=== PATIENT | male | born 1945 | race Two or more races ===

== ENCOUNTER 2019-01-23 09:04 | Day surgery (SDC) | payer MEDICARE ==
[~2019-01-23] VITALS: Ht 185.4 cm; Wt 89.8 kg
[~2019-01-23 09:04] MED LIST: AMLO5TAB4 PO; FEBU40TA PO; HEPARIN 1,000 UNITS/ML, 10ML ONE; HYDR12.517 PO; LISI-170 PO; METO50TA4 PO
[2019-01-23] MEDS ORDERED: SODIUM CHLORIDE 0.9% 1,000 ML IV SCH (10:25)
[2019-01-23 10:28] VITALS: BP 131/80
[2019-01-23 11:27] LABS: BASOPHILS # (AUTO) 0.01 x10^3/uL (0-0.1); BASOPHILS % (AUTO) 0 % (0-1); EOSINOPHILS # (AUTO) 0.06 x10^3/uL (0-0.4); EOSINOPHILS % (AUTO) 1 % (1-7); LYMPHOCYTES # (AUTO) 1.11 x10^3/uL (1-3.4); LYMPHOCYTES % (AUTO) 27 % (22-44); MD NO; MEAN CORPUSCULAR HEMOGLOBIN 29.3 pg (27.5-34.5); MEAN CORPUSCULAR HGB CONC 32.4 g/dL (33.2-36.2); MEAN CORPUSCULAR VOLUME 90.3 fL (81-97); MEAN PLATELET VOLUME 10.2 fL (7.4-10.4); MONOCYTES # (AUTO) 0.38 x10^3/uL (0.2-0.8); MONOCYTES % (AUTO) 9 % (2-9); NEUTROPHILS # (AUTO) 2.55 x10^3/uL (1.8-6.8); NEUTROPHILS % (AUTO) 62 % (42-75); PLATELET COUNT 168 x10^3/uL (130-400); RED BLOOD COUNT 4.35 x10^6/uL (4.38-5.82); RED CELL DISTRIBUTION WIDTH 13.2 % (9.4-14.8)
[2019-01-23] MEDS ORDERED: MORPHINE SULFATE 4 MG/ML, 1ML IVPush PRN (11:30)
[2019-01-23] MEDS ORDERED: PROMETHAZINE 25 MG/ML, 1ML IV PRN (11:30)
[2019-01-23] MEDS ORDERED: ACETAMINOPHEN 325 MG TABLET PO PRN (11:30)
[2019-01-23] MEDS ORDERED: hydrALAzine 20 MG/ML, 1ML IV PRN (11:30)
[2019-01-23] MEDS ORDERED: PROMETHAZINE 12.5 MG SUPP PR PRN (11:30)
[2019-01-23] MEDS ORDERED: MIDAZOLAM 1 MG/ML, 2ML IV PRN (11:30)
[2019-01-23] MEDS ORDERED: DIPHENHYDRAMINE 50 MG/ML, 1ML IVPush PRN (11:30)
[2019-01-23] MEDS ORDERED: OXYcodone 5 MG/5 ML ORAL.SOL UDC PO PRN (11:30)
[2019-01-23] MEDS ORDERED: EPHEDRINE 50 MG/ML, 1ML IM PRN (11:30)
[2019-01-23] MEDS ORDERED: ONDANSETRON ODT 8 MG PO PRN (11:30)
[2019-01-23] MEDS ORDERED: DIAZEPAM 5 MG/ML, 2ML IVPush PRN (11:30)
[2019-01-23] MEDS ORDERED: ONDANSETRON 2MG/ML, 2ML IV PRN (11:30)
[2019-01-23] MEDS ORDERED: FENTANYL PF 100 MCG/2ML IV PRN (11:30)
[2019-01-23] MEDS ORDERED: EPHEDRINE 50 MG/ML, 1ML IVPush PRN (11:30)
[2019-01-23] MEDS ORDERED: MIDAZOLAM 1 MG/ML, 2ML ONE (12:11)
[2019-01-23] MEDS ORDERED: FENTANYL PF 250 MCG/5ML ONE (12:12)
[2019-01-23] MEDS ORDERED: ONDANSETRON 2MG/ML, 2ML ONE ×2 (12:19)
[2019-01-23] MEDS ORDERED: CEFAZOLIN 1,000 MG ONE ×2 (12:19)
[2019-01-23] MEDS ORDERED: PROPOFOL 10 MG/ML, 20ML ONE (12:25)
== END 2019-01-23 15:00 | disposition home or self-care (01) ==
LOC: OUT 09:04
PROVIDERS: ATTEND Surgery Vascular Surgery
DX: E11.22 Type 2 diabetes mellitus with diabetic chronic kidney disease (principal); I12.0 Hypertensive chronic kidney disease with stage 5 chronic kidney disease or end stage renal disease; N18.6 End stage renal disease; Z79.84 Long term (current) use of oral hypoglycemic drugs
CPT/HCPCS: 36415; 36821; 80047; 85025; 93005; J0690; J1644; J2250; J2405; J2704; J3010